=== PATIENT | female | born 1960 | race American Indian/Alaskan Native ===

== ENCOUNTER 2019-05-18 15:57 | Outpatient (CLI) | payer MEDICARE ==
--- NOTE | 2019-05-18 16:56 | XRay Report ---
PELVIS ONE VIEW INDICATION / CLINICAL INFORMATION: HIP PAIN COMPARISON: None available. FINDINGS: BONES and JOINT(S): No acute fracture or subluxation. Mild degenerative changes are seen along the lo wer lumbar spine and SI joints. No additional significant arthritis. SOFT TISSUES: Surgical clips are seen throughout the pelvis without an additional significant abnorma lity. ADDITIONAL FINDINGS: None. IMPRESSION: No acute abnormality of the pelvis. Signer Name: Mitch Bloom MD Signed: 05/18/2019 4:52 PM Workstation Name: [id number]
--- NOTE | 2019-05-18 17:07 | XRay Report ---
LEFT HIP 4 VIEWS INDICATION / CLINICAL INFORMATION: HIP PAIN COMPARISON: None available. FINDINGS: BONES and JOINT(S): No acute fracture or subluxation. There is mild osteoarthritis of the knee. SOFT TISSUES: No acute abnormality. Surgical clips are seen along the pelvis. ADDITIONAL FINDINGS: None. IMPRESSION: No acute abnormality of the left femur. Signer Name: Mitch Bloom MD Signed: 05/18/2019 5:03 PM Workstation Name: [id number]
== END 2019-05-18 15:58 | disposition home or self-care (01) ==
LOC: SPVIMAG 15:57
PROVIDERS: ATTEND Internal Medicine Hematology & Oncology
DX: M16.12 Unilateral primary osteoarthritis, left hip (principal); M16.10 Unilateral primary osteoarthritis, unspecified hip; M17.12 Unilateral primary osteoarthritis, left knee; M47.816 Spondylosis without myelopathy or radiculopathy, lumbar region; C50.912 Malignant neoplasm of unspecified site of left female breast; Z15.01 Genetic susceptibility to malignant neoplasm of breast
CPT/HCPCS: 72170

== ENCOUNTER 2019-06-07 09:22 | Outpatient (CLI) | payer MEDICARE ==
--- NOTE | 2019-06-07 13:55 | Nuclear Medicine Report ---
NUCLEAR MEDICINE BONE SCAN, WHOLE BODY INDICATION: MALIGNANT NEOPLASM OF UNSPECIFIED SITE OF LT BREAST. TECHNIQUE: 27.5 mCi of Tc-99m MDP were injected IV. Whole body images were obtained. COMPARISON: X-rays of the pelvis and left femur dated 05/18/2019. FINDINGS: Skeletal Structures: Fairly symmetric, likely degenerative uptake is present involving the shoulders , sternoclavicular joints, hips, knees and feet. Skeletal Lesions: None. Soft Tissues: Normal. Kidneys: Normal, symmetric activity. Additional Findings: Other than mild degenerative uptake, no abnormality is identified in the left hi p and femur region.. IMPRESSION: No evidence for osseous metastasis. Degenerative findings as described.. Signer Name: Eduard Jaffe Jr, MD Signed: 06/07/2019 1:50 PM Workstation Name: [id number]
== END 2019-06-07 09:23 | disposition home or self-care (01) ==
LOC: NM 09:22
PROVIDERS: ATTEND Internal Medicine Hematology & Oncology
DX: C50.912 Malignant neoplasm of unspecified site of left female breast (principal); Z15.01 Genetic susceptibility to malignant neoplasm of breast
CPT/HCPCS: 78306; A9503